=== PATIENT | female | born 1970 | race Caucasian/White ===

== ENCOUNTER 2016-11-11 23:00 | Emergency (ER) | payer BC ==
[~2016-11-11] VITALS: Ht 167.6 cm; Wt 98.0 kg
[2016-11-11 23:09] VITALS: TEMP 36.8; Ht 167.6 cm; Wt 98.0 kg
[2016-11-11] MEDS ORDERED: CLR10 PO (23:33)
[2016-11-11] MEDS ORDERED: PSEU30TA20 PO (23:33)
--- NOTE | 2016-11-11 23:46 | EMERGENCY ROOM VISIT NOTE ---
History Report prepared by Elais: Tori Hutton Under the Supervision of: Oliver MetcalfO. First contact with patient: 23:36 Chief Complaint: FLANK PAIN Stated Complaint: INTENSE PAIN LOWER RT BACK AND RIGHT SIDE History of Present Illness The patient is a 46 year old female who presents to the Emergency Room with complaints of intermittent right sided flank pain that started at 0700 this morning. She rates her current discomfort as a 2/10 in severity and describes it as feeling "crampy" in nature. The pain does radiate up into her back. The patient reports she experienced some diarrhea this morning but states it has resolved. She also complains of dysuria and nausea. She has not vomited. The patient does admit to a family history of kidney stones in her Mother. She denies any recent fevers, chills or cough or cold symptoms. Source of History: patient Onset: 0700 this morning Position: abdomen Symptom Intensity: 2/10 Quality: cramping Timing: intermittent Associated Symptoms: + nausea, + diarrhea, + urinary symptoms, No fevers, No chills, No cough (cough or cold symptoms), No vomiting Review of Systems See HPI for pertinent positives & negatives. A total of 10 systems reviewed and were otherwise negative. Family History Kidney stones Social History Smoking Status: Never Smoker Alcohol Use: occasionally Drug Use: none Marital Status: Housing Status: lives with family Occupation Status: employed Current/Historical Medications Scheduled Ondasetron Odt (Zofran Odt), 4 MG SL Q6H Tamsulosin Hcl (Flomax), 0.4 MG PO DAILY Scheduled PRN Loratadine (Claritin), 10 MG PO DAILY PRN for ALLERGIES Oxycodone/Acetaminophen 5MG/325MG (Percocet 5MG/325MG), 1 TAB PO Q6 PRN for Pain Pseudoephedrine (Sudafed), 30 MG PO QAM PRN for ALLERGIES Allergies Coded Allergies: No Known Allergies (Unverified , 11/11/16) Physical Exam Vital Signs Date Time Temp Pulse Resp B/P (MAP) Pulse Ox O2 Delivery O2 Flow Rate FiO2 11/12/16 01:30 78 18 137/90 98 11/12/16 00:37 68 18 142/92 97 Room Air 11/11/16 23:09 36.8 82 20 124/84 97 Room Air Physical Exam GENERAL: Patient is alert, well appearing, well nourished, no distress, non- toxic EYE EXAM: normal conjunctiva, PERRL and EOM's grossly intact OROPHARYNX: no exudate, no erythema, lips, buccal mucosa, and tongue normal and mucous membranes are moist NECK: supple, no nuchal rigidity, no adenopathy, non-tender LUNGS: Clear to auscultation. Normal chest wall mechanics HEART: no murmurs, S1 normal and S2 normal ABDOMEN: abdomen soft, non-tender, normo-active bowel sounds, no masses, no rebound or guarding. BACK: Back is symmetrical on inspection and there is no deformity, no midline tenderness, no CVA tenderness. SKIN: no rashes and no bruising UPPER EXTREMITIES: upper extremities are grossly normal. LOWER EXTREMITIES: No pitting edema. NEURO EXAM: Normal sensorium, cranial nerves II-XII grossly intact, normal speech, no gross weakness of arms, no gross weakness of legs. No drift. Finger to nose intact. Gross sensation intact. Medical Decision & Procedures ER Provider Diagnostic Interpretation: Radiology results have been interpreted by the radiologist and reviewed by me. CT ABDOMEN & PELVIS: There is a 5 mm obstructing stone in the distal right ureter located 2 cm proximal to the UVJ causing mild upstream hydroureteronephrosis and perinephric stranding. Additional nonobstructing nephrolithiasis of both kidneys. No evidence of bowel obstruction, appendicitis, or diverticulitis. Radiologist: Darleen Mckee M.D. Laboratory Results 11/12/16 00:01 Red Blood Count 4.41, Mean Corpuscular Volume 87.8, Mean Corpuscular Hemoglobin 29.9, Mean Corpuscular Hemoglobin Concent 34.1, Mean Platelet Volume 12.7, Neutrophils (%) (Auto) 73.8, Lymphocytes (%) (Auto) 15.1, Monocytes (%) (Auto) 9.2, Eosinophils (%) (Auto) 1.5, Basophils (%) (Auto) 0.2, Neutrophils # (Auto) 7.23, Lymphocytes # (Auto) 1.48, Monocytes # (Auto) 0.90, Eosinophils # (Auto) 0.15, Basophils # (Auto) 0.02 11/12/16 00:01 Test 11/11/16 23:44 11/12/16 00:01 Urine Color ORANGE Urine Appearance CLOUDY (CLEAR) Urine pH 6.0 (4.5-7.5) Urine Specific [place] 1.023 (1.000-1.030) Urine Protein TRACE (NEG) Urine Glucose (UA) NEG (NEG) Urine Ketones NEG (NEG) Urine Occult Blood 3+ (NEG) Urine Nitrite NEG (NEG) Urine Bilirubin NEG (NEG) Urine Urobilinogen NEG (NEG) Urine Leukocyte Esterase TRACE (NEG) Urine WBC (Auto) 5-10 /hpf (0-5) Urine RBC (Auto) >30 /hpf (0-4) Urine Hyaline Casts (Auto) 1-5 /lpf (0-5) Urine Epithelial Cells (Auto) >30 /lpf (0-5) Urine Bacteria (Auto) NEG (NEG) Urine Test NEG (NEG) White Blood Count 9.80 K/uL (4.8-10.8) Red Blood Count 4.41 M/uL (4.2-5.4) Hemoglobin 13.2 g/dL (12.0-16.0) Hematocrit 38.7 % (37-47) Mean Corpuscular Volume 87.8 fL (80-100) Mean Corpuscular Hemoglobin 29.9 pg (25-34) Mean Corpuscular Hemoglobin Concent 34.1 g/dl (32-36) Platelet Count 195 K/uL (130-400) Mean Platelet Volume 12.7 fL (7.4-10.4) Neutrophils (%) (Auto) 73.8 % Lymphocytes (%) (Auto) 15.1 % Monocytes (%) (Auto) 9.2 % Eosinophils (%) (Auto) 1.5 % Basophils (%) (Auto) 0.2 % Neutrophils # (Auto) 7.23 K/uL (1.4-6.5) Lymphocytes # (Auto) 1.48 K/uL (1.2-3.4) Monocytes # (Auto) 0.90 K/uL (0.11-0.59) Eosinophils # (Auto) 0.15 K/uL (0-0.5) Basophils # (Auto) 0.02 K/uL (0-0.2) RDW Standard Deviation 45.3 fL (36.4-46.3) RDW Coefficient of Variation 14.0 % (11.5-14.5) Immature Granulocyte % (Auto) 0.2 % Immature Granulocyte # (Auto) 0.02 K/uL (0.00-0.02) Anion Gap 6.0 mmol/L (3-11) Est Creatinine Clear Calc Drug Dose 104.1 ml/min Estimated GFR () 104.2 Estimated GFR (Non- 89.9 BUN/Creatinine Ratio 18.1 (10-20) Calcium Level 8.8 mg/dl (8.5-10.1) Laboratory results per my review. Medications Administered Medications (Trade) Dose Ordered Sig/Danilo Route Start Time Stop Time Status Last Admin Dose Admin Sodium Chloride 1,000 ml @ 999 mls/hr Q1H1M STAT IV 11/11/16 23:47 11/12/16 00:47 DC 11/12/16 00:34 999 MLS/HR Ketorolac Tromethamine (Toradol Inj) 30 mg NOW STAT IV 11/11/16 23:52 11/11/16 23:53 DC 11/12/16 00:34 30 MG Tamsulosin HCl (Flomax Cap) 0.4 mg NOW ONCE PO 11/12/16 01:00 11/12/16 01:01 DC 11/12/16 01:26 0.4 MG Oxycodone/ Acetaminophen (Percocet 5-325mg Tab) 1 tab NOW ONCE PO 11/12/16 01:15 11/12/16 01:16 DC 11/12/16 01:26 1 TAB ED Course 2341: The patient was evaluated in room C4. A complete history and physical exam was performed. 2347: NSS 1000 ml @ 999 mls/hr IV. 2352: Toradol 30 mg IV. 0050: I reevaluated the patient. She is feeling well but still experiencing some supra-pubic pressure. I discussed her test results and discharge instructions and she verbalized complete understanding and agreement. 0100: Flomax Cap 0.4 mg PO. 0115: Percocet 5/325 mg 1 tab PO. Medical Decision Prior records/ancillary studies reviewed. Triage Nursing notes reviewed. Differential diagnosis: Etiologies such as renal colic, appendicitis, diverticulitis, mesenteric ischemia, aortic pathology, infections, inflammatory bowel disease, PUD, biliary pathology, UTI, as well as others were entertained. Pt well appearing here, discussed all results. UA mostly hematuria, slight pyuria likely dilutional from large RBC's. Sent for culture as a precaution. Labs otw reassuring. Doubt infected stone. Discussed sx to watch/return for, f /u with PCP/urology, she verbalized understanding and was agreeable with plan. Medication Reconcilliation Current Medication List: was personally reviewed by me Blood Pressure Screening Patient's blood pressure: Elevated blood pressure Blood pressure disposition: Elevated BP felt to be situational Impression Primary Impression: Right flank pain Additional Impression: Ureterolithiasis Scribe Attestation The scribe's documentation has been prepared under my direction and personally reviewed by me in its entirety. I confirm that the note above accurately reflects all work, treatment, procedures, and medical decision making performed by me. Departure Information Dispostion Home / Self-Care Prescriptions Oxycodone/Acetaminophen 5MG/325MG (PERCOCET 5MG/325MG) Tab 1 TAB PO Q6 Y for Pain, #20 TAB Prov: Brenna Lester, DO 11/12/16 Ondasetron Odt (ZOFRAN ODT) 4 Mg Tab 4 MG SL Q6H for Nausea, #20 TAB Prov: Brenna Lester, DO 11/12/16 Tamsulosin Hcl (FLOMAX) 0.4 Mg Cap 0.4 MG PO DAILY, #10 CAP Prov: Brenna Lester, DO 11/12/16 Referrals Lila Brink (PCP) Patient Instructions My [facility] Additional Instructions Please follow up with your family doctor and/or urology. Please drink plenty of water. Please take the Flomax daily until you passed the kidney stone. You may use the pain and nausea medication as needed. Do not take the pain medication and drive and please monitor for constipation. If you develop any worsening pain, fevers/chills, vomiting, are unable to urinate, or you have any other new or concerning symptoms, please return to the emergency room. Your urine was sent for culture as a precaution. If it grows out infection, you'll receive a phone call. Problem Qualifiers
[2016-11-11] MEDS ORDERED: SODIUM CHLORIDE 0.9% 1000ML 1,000 ML IV STA (23:47)
[2016-11-11] MEDS ORDERED: KETOROLAC TROMETHAMINE 30 MG/ML VIAL IV STA (23:52)
[2016-11-12 00:08] LABS: URINE APPEARANCE CLOUDY (CLEAR); URINE BILIRUBIN NEG (NEG); URINE COLOR ORANGE; URINE EPITHELIAL CELL AUTO >30 /lpf (0-5); URINE NITRITE NEG (NEG); URINE SPECIFIC GRAVITY 1.023 (1.000-1.030); UROBILINOGEN NEG (NEG); ZZUR CULT IF INDIC CLEAN CATCH NO
[2016-11-12 00:09] LABS: MANUAL MICROSCOPIC REQUIRED? NO; REVIEW REQ? NO
[2016-11-12 00:17] LABS: BASO % 0.2 %; BASO ABS # 0.02 K/uL (0-0.2); COMPLETE YES; EOS % 1.5 %; HEMATOCRIT 38.7 % (37-47); IG% 0.2 %; LYMPH % 15.1 %; LYMPH ABS # 1.48 K/uL (1.2-3.4); MEAN CELL VOLUME 87.8 fL (80-100); MEAN CORPUSCULAR HEMOGLOBIN 29.9 pg (25-34); MEAN CORPUSCULAR HGB CONC 34.1 g/dl (32-36); MEAN PLATELET VOLUME 12.7 fL (7.4-10.4); MONO % 9.2 %; NEUT % 73.8 %; PLATELET COUNT 195 K/uL (130-400); RED BLOOD COUNT 4.41 M/uL (4.2-5.4)
[2016-11-12 00:35] LABS: BUN/CREATININE RATIO 18.1 (10-20); CALCIUM 8.8 mg/dl (8.5-10.1); CREATININE 0.78 mg/dl (0.60-1.20)
[2016-11-12] MEDS ORDERED: TAMSULOSIN HCL 0.4 MG CAP PO ONE (01:00)
[2016-11-12] MEDS ORDERED: OXYC-57 PO (01:04)
[2016-11-12] MEDS ORDERED: ONDA4TAB10 SL (01:04)
[2016-11-12] MEDS ORDERED: TAMS0.4C38 PO (01:04)
[2016-11-12] MEDS ORDERED: OXYCODONE/ACETAMINOPHEN 5-325 TAB PO ONE (01:15)
[2016-11-12 01:30] VITALS: BP 137/90; PULSE 78; O2SAT 98
--- NOTE | 2016-11-12 07:27 | DIAGNOSTIC IMAGING REPORT ---
ABD/PELVIS NO IV OR ORAL CONT CLINICAL HISTORY: 46 years-old Female presenting with right flank pain. TECHNIQUE: Multidetector CT of the abdomen and pelvis was performed without the use of intravenous contrast. IV contrast: None. A dose lowering technique was used consistent with the principles of ALARA (as low as reasonably achievable). COMPARISON: None. CT DOSE (mGy.cm): The estimated cumulative dose is 831.78 mGy.cm. FINDINGS: Litigation Counsel topogram: Unremarkable. Lung bases: Minimal dependent changes, likely atelectasis. Normal heart size. No pericardial or pleural effusion. Liver: Normal morphology. Normal density. Biliary: No gross biliary ductal dilatation allowing for noncontrast technique. Gallbladder contracted. Pancreas: Normal. Spleen: Normal. Adrenal glands: Normal. Kidneys and ureters: Nonobstructing 5 mm calculus at the right lower pole. Mild periureteral fat stranding along the proximal ureter, which is mildly dilated. Continued dilatation of the right ureter to the level of the right hemipelvis, where there is an obstructing 6 mm calculus proximal to the right ureterovesical junction (series 3 image 420). Mild right hydronephrosis results. Nonobstructing 4 mm calculus at the upper pole left kidney. No left hydronephrosis. Left ureter normal. Gastrointestinal tract: Normal. No bowel obstruction. Peritoneal cavity: Trace free fluid in the pelvis, likely physiologic. Bladder: Incompletely evaluated secondary to underdistention. No bladder calculi. Pelvic organs: Uterus and ovaries normal. Vasculature: Normal noncontrast appearance. Lymph nodes: Multiple enlarged subcentimeter lymph nodes in the small bowel mesentery in the upper abdomen without significant surrounding fat stranding. No pathologically enlarged lymph nodes in the abdomen or pelvis. Abdominal wall: Diastases of the abdominis rectus. Musculoskeletal: Normal. IMPRESSION: 1. Obstructing 6 mm calculus in the distal right ureter with resultant mild right hydroureteronephrosis. Additional bilateral nonobstructing renal calculi. Electronically signed by: Dima Aguiar M.D. 11/12/2016 7:26 AM Dictated Date/Time: 11/12/2016 7:20 AM
[2016-11-24] MEDS ORDERED: PHEN-775 PO (08:23)
== END 2016-11-12 01:31 | disposition home or self-care (01) ==
LOC: C.EDB 23:02 → C.EDC 11-12 01:31
DX: R10.11 Right upper quadrant pain (principal); R10.31 Right lower quadrant pain; N20.1 Calculus of ureter

== ENCOUNTER 2016-11-16 14:26 | Emergency (ER) | payer BC ==
[~2016-11-16] VITALS: Ht 167.6 cm; Wt 97.5 kg
[~2016-11-16 14:26] MED LIST: CLR10 PO; ONDA4TAB10 SL; OXYC-57 PO; PSEU30TA20 PO; TAMS0.4C38 PO
[2016-11-16 14:30] VITALS: TEMP 36.9; Ht 167.6 cm; Wt 97.5 kg
[2016-11-16] MEDS ORDERED: SODIUM CHLORIDE 0.9% 1000ML 1,000 ML IV STA (14:55)
[2016-11-16] MEDS ORDERED: KETOROLAC TROMETHAMINE 30 MG/ML VIAL IV STA (14:55)
[2016-11-16] MEDS ORDERED: ONDANSETRON INJ 2 MG/ML 2 ML VIAL IV STA (14:55)
--- NOTE | 2016-11-16 15:17 | EMERGENCY ROOM VISIT NOTE ---
History First contact with patient: 14:42 Chief Complaint: NAUSEA Stated Complaint: KIDNEY STONES, INCREASED NAUSEA, HEADACHE Nursing Triage Summary: Pt c/o increased nausea and headache. Symptoms began this morning. Seen here Wednesday for a kidney stone. Vomited at 1000 History of Present Illness The patient is a 46 year old female who presents to the Emergency Room with complaints of nausea with vomiting, right flank pain. She describes her right flank pain as constant ache, with intermittently worsening sharp pains, currently rates as 3/10. She states the primary reason she is in the ER is for worsening nausea with vomiting. Patient was seen in this emergency department 5 days ago and diagnosed with a 5 mm right-sided ureteral stone sent home on Percocet, Zofran, Flomax, which she states she has been taking. She states she has been straining her urine and has not yet passed the stone. This morning her flank pain became worse and she was more nauseated to the point of vomiting 3. She also is complaining of a generalized headache today. She denies fevers , chest pain, shortness of breath, palpitations, dizziness or passing out, diarrhea or constipation. She denies hematuria, decreased output, or dark urine , but she does note that she has had increased urinary frequency and burning with urination since yesterday. Review of Systems A complete 10 point review of systems was reviewed with the patient with pertinent positives and negatives as per history of present illness. All else were negative. Family History Kidney stones Social History Smoking Status: Never Smoker Alcohol Use: occasionally Drug Use: none Marital Status: Housing Status: lives with family Occupation Status: employed Current/Historical Medications Scheduled Ondasetron Odt (Zofran Odt), 4 MG SL Q6H Sulfa/Trimethoprim (Bactrim Ds 800MG/160MG), 1 TAB PO BID Tamsulosin Hcl (Flomax), 0.4 MG PO DAILY Scheduled PRN Loratadine (Claritin), 10 MG PO DAILY PRN for ALLERGIES Oxycodone/Acetaminophen 5MG/325MG (Percocet 5MG/325MG), 1 TAB PO Q6 PRN for Pain Pseudoephedrine (Sudafed), 30 MG PO QAM PRN for ALLERGIES Physical Exam Vital Signs Date Time Temp Pulse Resp B/P (MAP) Pulse Ox O2 Delivery O2 Flow Rate FiO2 11/16/16 19:06 64 128/81 97 11/16/16 17:30 73 16 126/83 95 Room Air 11/16/16 16:15 69 17 143/73 98 Room Air 11/16/16 14:30 36.9 85 17 146/87 100 Room Air Physical Exam CONSTITUTIONAL: No acute distress, but does appear uncomfortable. Mildly dehydrated. Alert and oriented X 4 with normal affect. HEENT: Normocephalic, atraumatic. Pupils equal, round and reactive to light, EOMI. TMs normal. Pharynx normal. Dry mucous membranes. NECK: Supple, full active range of motion without discomfort. RESPIRATORY: Clear to auscultation bilaterally with no wheezing, crackles, rhonchi or stridor. Equal expansion bilaterally. CARDIOVASCULAR: Regular rate and rhythm with no murmurs, rubs or gallops. Normal peripheral perfusion. No edema. GASTROINTESTINAL: Moderate right flank and right lower quadrant tenderness to palpation, no rebound or guarding. Mild right CVA tenderness. Soft, nondistended. Bowel sounds present in all quadrants. MUSCULOSKELETAL: Full range of motion of all joints without discomfort. INTEGUMENTARY: No rash or other significant dermatologic conditions noted. NEUROLOGIC: Cranial nerves II-XII grossly intact. No focal neurologic deficits noted. Normal strength, normal sensation, normal coordination, normal speech, normal gait. Medical Decision & Procedures ER Provider Diagnostic Interpretation: KUB HISTORY: Generalized abdominal pain. COMPARISON: Abdomen and pelvis CT 11/12/2016. FINDINGS: The bowel gas pattern is unremarkable. There are no dilated loops of small bowel to suggest an obstruction. Moderate well-formed stool within the colon. There are few punctate bilateral renal calculi, unchanged. No left ureteral calculi. No change in the 5 mm obstructing stone within the distal right ureter. No pneumoperitoneum or pneumatosis. IMPRESSION: 1. No change in the 5 mm distal right ureteral stone. 2. Stable bilateral nephrolithiasis. ----- (RENAL)RETROPERITONEA COMP HISTORY: Hydronephrosis known right ureteral stone, eval hydronephrosis COMPARISON: Outside CT 11/12/2016 FINDINGS: Right kidney: Mild right renal hydronephrosis. Similar compared to the prior CT study. Maximum dimension 11.8 cm. Normal corticomedullary differentiation and cortical thickness. Left kidney: No evidence for hydronephrosis. Maximum dimension 11.4 cm. Normal corticomedullary differentiation and cortical thickness. Bladder: No bladder wall thickening. No right ureteral jet. Possible calculus distal right ureter/right ureterovesical junction IMPRESSION: Mild/moderate right renal hydronephrosis unchanged. Possible calcification right ureteral vesicle junction. Laboratory Results 11/16/16 15:45 Red Blood Count 4.55, Mean Corpuscular Volume 88.4, Mean Corpuscular Hemoglobin 29.9, Mean Corpuscular Hemoglobin Concent 33.8, Mean Platelet Volume 12.2, Neutrophils (%) (Auto) 80.3, Lymphocytes (%) (Auto) 10.4, Monocytes (%) (Auto) 8.0, Eosinophils (%) (Auto) 0.7, Basophils (%) (Auto) 0.3, Neutrophils # (Auto) 5.81, Lymphocytes # (Auto) 0.75, Monocytes # (Auto) 0.58, Eosinophils # (Auto) 0.05, Basophils # (Auto) 0.02 11/16/16 15:45 Test 11/16/16 15:30 11/16/16 15:45 11/16/16 18:22 Urine Color YELLOW Urine Appearance TURBID (CLEAR) Urine pH >= 9.0 (4.5-7.5) Urine Specific [place] 1.021 (1.000-1.030) Urine Protein TRACE (NEG) Urine Glucose (UA) NEG (NEG) Urine Ketones 1+ (NEG) Urine Occult Blood 3+ (NEG) Urine Nitrite NEG (NEG) Urine Bilirubin NEG (NEG) Urine Urobilinogen NEG (NEG) Urine Leukocyte Esterase SMALL (NEG) Urine WBC (Auto) 10-30 /hpf (0-5) Urine RBC (Auto) >30 /hpf (0-4) Urine Hyaline Casts (Auto) 1-5 /lpf (0-5) Urine Epithelial Cells (Auto) >30 /lpf (0-5) Urine Bacteria (Auto) 2+ (NEG) White Blood Count 7.23 K/uL (4.8-10.8) Red Blood Count 4.55 M/uL (4.2-5.4) Hemoglobin 13.6 g/dL (12.0-16.0) Hematocrit 40.2 % (37-47) Mean Corpuscular Volume 88.4 fL (80-100) Mean Corpuscular Hemoglobin 29.9 pg (25-34) Mean Corpuscular Hemoglobin Concent 33.8 g/dl (32-36) Platelet Count 183 K/uL (130-400) Mean Platelet Volume 12.2 fL (7.4-10.4) Neutrophils (%) (Auto) 80.3 % Lymphocytes (%) (Auto) 10.4 % Monocytes (%) (Auto) 8.0 % Eosinophils (%) (Auto) 0.7 % Basophils (%) (Auto) 0.3 % Neutrophils # (Auto) 5.81 K/uL (1.4-6.5) Lymphocytes # (Auto) 0.75 K/uL (1.2-3.4) Monocytes # (Auto) 0.58 K/uL (0.11-0.59) Eosinophils # (Auto) 0.05 K/uL (0-0.5) Basophils # (Auto) 0.02 K/uL (0-0.2) RDW Standard Deviation 44.8 fL (36.4-46.3) RDW Coefficient of Variation 13.8 % (11.5-14.5) Immature Granulocyte % (Auto) 0.3 % Immature Granulocyte # (Auto) 0.02 K/uL (0.00-0.02) Anion Gap 7.0 mmol/L (3-11) Est Creatinine Clear Calc Drug Dose 92.0 ml/min Estimated GFR () 90.0 Estimated GFR (Non- 77.7 BUN/Creatinine Ratio 15.2 (10-20) Calcium Level 8.8 mg/dl (8.5-10.1) Chemistry Specimen Hemolysis Medications Administered Medications (Trade) Dose Ordered Sig/Danilo Route Start Time Stop Time Status Last Admin Dose Admin Sodium Chloride 1,000 ml @ 999 mls/hr Q1H1M STAT IV 11/16/16 14:55 11/16/16 15:55 DC 11/16/16 16:09 999 MLS/HR Ondansetron HCl (Zofran Inj) 4 mg NOW STAT IV 11/16/16 14:55 11/16/16 14:57 DC 11/16/16 16:09 4 MG Ketorolac Tromethamine (Toradol Inj) 15 mg NOW STAT IV 11/16/16 14:55 11/16/16 14:57 DC 11/16/16 16:09 15 MG Ceftriaxone Sodium (Rocephin Inj) 1 gm NOW STAT IV 11/16/16 16:38 11/16/16 16:40 DC 11/16/16 17:26 1 GM Trimethoprim/ Sulfamethoxazole (Septra Ds 800/ 160MG Tab) 1 tab NOW STAT PO 11/16/16 16:38 11/16/16 16:40 DC 11/16/16 17:26 1 TAB Medical Decision CC: Patient presenting with complaint of right flank pain with nausea and vomiting, headache Interpretation of Labs: No leukocytosis, no anemia, no significant elective at abnormalities, normal renal function, normal liver enzymes and lipase. UA concerning for developing UTI in setting of dysuria and frequency, culture pending. Differential Diagnosis: Includes, but not limited to obstructing ureteral stone , hydronephrosis, UTI, pyelonephritis, dehydration, electrolyte abnormality, tension headache, among others. Medication Reconciliation: I attest that I have personally reviewed the patient' s current medication list. Vital signs review: I reviewed the patient's vital signs and interpret them as follows: T: Afebrile; BP: Hypertensive; HR: Within normal limits; RR: Within normal limits; Pulse Ox: Within normal limits on room air. Blood pressure screening: The patient was found to have an elevated blood pressure and was referred to their primary doctor for recheck and further treatment. Summary: Patient was evaluated at bedside, history of physical exam performed. Patient is alert and in no acute distress but appears somewhat uncomfortable. She has mild right flank tenderness and right abdominal tenderness on exam. She is actively nauseated, but no active vomiting noted. Orders were placed at bedside for labs, UA, IV fluids, KUB and renal ultrasound to evaluate for hydronephrosis and progression of stone. Patient discussed with Dr. Quintanilla, who agrees with my assessment and plan. Labs reviewed as above, unremarkable. UA concerning for developing UTI, in the setting of an obstructing stone, we will treat. One dose of IV Rocephin ordered and dose of Bactrim given. Imaging reviewed, consistent with an unchanged position of the ureteral stone, no worsening hydronephrosis noted of the right kidney. Patient was updated on all results and all questions were answered. Patient reassessed multiple times throughout ED stay, she reports her nausea is improved after IV Zofran and she has been tolerating PO fluids. She also reports feeling much better after IV fluids and Toradol. Her headache is fully resolved. Upon further discussion with the patient, it seems that her nausea may be related to taking the Percocet, which she has been prescribed for pain. She was encouraged to start taking ibuprofen for her pain and to only take the Percocet as needed for severe pain, and also premedicated with Zofran prior to taking Percocet to help reduce her nausea/vomiting. Given that she has yet to pass this stone in nearly a week and now has had interval development of a possible UTI, patient was strongly urged to follow closely with the urologist and to call tomorrow for an appointment. Patient was also given strict return precautions should her symptoms worsen, she verbalized understanding. Patient was discharged home in stable condition and ambulatory. Impression Primary Impression: Right distal ureteral calculus Additional Impressions: Nausea & vomiting UTI (urinary tract infection) Departure Information Dispostion Home / Self-Care Condition GOOD Prescriptions Sulfa/Trimethoprim (Bactrim Ds 800MG/160MG) Tab 1 TAB PO BID for 10 Days, #20 TAB Prov: Debora Melvin CRNP 11/16/16 Referrals No Doctor, Assigned (PCP) Renato Vernon D.O. Patient Instructions ED Stone Renal W Colic, ED UTI Cystitis Female, My [facility] Additional Instructions You have been treated in the Emergency Department today for a Kidney Stone ( Nephrolithiasis). You also appear to have a urinary tract infection (UTI) and have been treated for that as well. You have been prescribed Bactrim to take twice a day for 10 days to treat your urinary tract infection. This is an antibiotic, take as prescribed and do not skip any doses. Continue to take the Percocet, Zofran, and Flomax as prescribed for your symptoms. For additional pain control, you may take regular strength (200 mg/tab) Advil ( ibuprofen) 3 tabs every 6 hours as needed. Do not exceed a dose of 3200 mg per day. You should continue to strain your urine to collect any passed stones. Your stones can be placed into the specimen cup and taken to your Urologist for further evaluation. You have been provided the contact information for the on-call Urologist (Dr. Vernon). You should contact the Urologist's office tomorrow morning to establish a follow-up appointment so that your stone can be definitively managed. Please return to the Emergency Department if your symptoms worsen despite the treatment plan outlined above or if you develop the following symptoms: intractable pain, fevers, chills, large amounts of blood in your urine, or inability to urinate for more than 8 hours. Problem Qualifiers Additional Impressions: Nausea & vomiting Vomiting type: unspecified Vomiting Intractability: non-intractable Qualified Codes: R11.2 - Nausea with vomiting, unspecified UTI (urinary tract infection) Urinary tract infection type: site unspecified Hematuria presence: with hematuria Qualified Codes: N39.0 - Urinary tract infection, site not specified ; R31.9 - Hematuria, unspecified
[2016-11-16 15:58] LABS: URINE APPEARANCE TURBID (CLEAR); URINE BILIRUBIN NEG (NEG); URINE COLOR YELLOW; URINE EPITHELIAL CELL AUTO >30 /lpf (0-5); URINE NITRITE NEG (NEG); URINE PH >= 9.0 (4.5-7.5); URINE SPECIFIC GRAVITY 1.021 (1.000-1.030); UROBILINOGEN NEG (NEG)
[2016-11-16 16:01] LABS: MANUAL MICROSCOPIC REQUIRED? NO; REVIEW REQ? NO
[2016-11-16 16:02] LABS: SULFASALICYLIC ACID POS (NEG)
[2016-11-16 16:07] LABS: BASO % 0.3 %; BASO ABS # 0.02 K/uL (0-0.2); COMPLETE YES; EOS % 0.7 %; HEMATOCRIT 40.2 % (37-47); IG% 0.3 %; LYMPH % 10.4 %; LYMPH ABS # 0.75 K/uL (1.2-3.4); MEAN CELL VOLUME 88.4 fL (80-100); MEAN CORPUSCULAR HEMOGLOBIN 29.9 pg (25-34); MEAN CORPUSCULAR HGB CONC 33.8 g/dl (32-36); MEAN PLATELET VOLUME 12.2 fL (7.4-10.4); NEUT % 80.3 %; PLATELET COUNT 183 K/uL (130-400); RED BLOOD COUNT 4.55 M/uL (4.2-5.4); WHITE BLOOD COUNT 7.23 K/uL (4.8-10.8)
[2016-11-16 16:27] LABS: BUN/CREATININE RATIO 15.2 (10-20); CALCIUM 8.8 mg/dl (8.5-10.1); CREATININE 0.88 mg/dl (0.60-1.20); POTASSIUM 4.4 mmol/L (3.5-5.1)
[2016-11-16] MEDS ORDERED: CEFTRIAXONE SOD INJ 1 GM ADDVIAL IV STA (16:38)
[2016-11-16] MEDS ORDERED: SULFAMETHOXAZOLE/TRIMETHOPRIM DS 800/160MG TAB PO STA (16:38)
--- NOTE | 2016-11-16 16:52 | DIAGNOSTIC IMAGING REPORT ---
(RENAL)RETROPERITONEA COMP HISTORY: Hydronephrosis known right ureteral stone, eval hydronephrosis COMPARISON: Outside CT 11/12/2016 FINDINGS: Right kidney: Mild right renal hydronephrosis. Similar compared to the prior CT study. Maximum dimension 11.8 cm. Normal corticomedullary differentiation and cortical thickness. Left kidney: No evidence for hydronephrosis. Maximum dimension 11.4 cm. Normal corticomedullary differentiation and cortical thickness. Bladder: No bladder wall thickening. No right ureteral jet. Possible calculus distal right ureter/right ureterovesical junction IMPRESSION: Mild/moderate right renal hydronephrosis unchanged. Possible calcification right ureteral vesicle junction The above report was generated using voice recognition software. It may contain grammatical, syntax or spelling errors. Electronically signed by: Ranjan Dean M.D. 11/16/2016 4:51 PM Dictated Date/Time: 11/16/2016 4:49 PM
--- NOTE | 2016-11-16 17:00 | DIAGNOSTIC IMAGING REPORT ---
KUB HISTORY: Generalized abdominal pain. COMPARISON: Abdomen and pelvis CT 11/12/2016. FINDINGS: The bowel gas pattern is unremarkable. There are no dilated loops of small bowel to suggest an obstruction. Moderate well-formed stool within the colon. There are few punctate bilateral renal calculi, unchanged. No left ureteral calculi. No change in the 5 mm obstructing stone within the distal right ureter. No pneumoperitoneum or pneumatosis. IMPRESSION: 1. No change in the 5 mm distal right ureteral stone. 2. Stable bilateral nephrolithiasis. Electronically signed by: Onofre Manrique M.D. 11/16/2016 4:59 PM Dictated Date/Time: 11/16/2016 4:57 PM
[2016-11-16] MEDS ORDERED: SULF800T23 PO (18:27)
[2016-11-16 19:06] VITALS: BP 128/81; PULSE 64; O2SAT 97
[2016-11-24] MEDS ORDERED: PHEN-775 PO (08:23)
== END 2016-11-16 19:07 | disposition home or self-care (01) ==
LOC: C.EDB 14:28
DX: N13.2 Hydronephrosis with renal and ureteral calculous obstruction (principal); N39.0 Urinary tract infection, site not specified; R51 Headache; Z84.1 Family history of disorders of kidney and ureter; Z79.899 Other long term (current) drug therapy

== ENCOUNTER → 2016-11-18 | Outpatient (CLI) | payer BC ==
[~2016-11-18] MED LIST changes: +ONDA4TAB46 PO; +PHEN-775 PO; +SCOPOLAMINE 1.5 MG TDSY TD ONE; +SULF800T23 PO
--- NOTE | 2016-11-18 13:01 | DIAGNOSTIC IMAGING REPORT ---
CHEST 2 VIEWS ROUTINE HISTORY: 46 years-old Female N20.0 [id number] COMPARISON: Chest CT 06/02/2010 TECHNIQUE: Frontal and lateral radiographic views of the chest FINDINGS: Cardiomediastinal and hilar silhouettes are within normal limits. No pneumothorax, pleural effusion or focal airspace consolidation. Bones of the chest appear grossly intact. There is mild convex left curvature of the lower thoracic spine. IMPRESSION: No acute cardiopulmonary process. The above report was generated using voice recognition software. It may contain grammatical, syntax or spelling errors. Electronically signed by: Keaton Esquivel M.D. 11/18/2016 12:59 PM Dictated Date/Time: 11/18/2016 12:58 PM
--- NOTE | 2016-11-18 13:03 | DIAGNOSTIC IMAGING REPORT ---
KUB HISTORY: 46 years-old Female N20.0 [id number] COMPARISON: KUB 11/16/2016, CT 11/12/2016 TECHNIQUE: Single KUB radiograph FINDINGS: There is no change in positioning of the 5 mm calculus of the distal right ureter. Bilateral nephrolithiasis redemonstrated. No additional ureteral calculi are seen. Bones are intact. Nonobstructive bowel gas pattern. IMPRESSION: 1. No change in position of the 5 mm distal right ureteral calculus. 2. Bilateral nephrolithiasis redemonstrated. The above report was generated using voice recognition software. It may contain grammatical, syntax or spelling errors. Electronically signed by: Keaton Esquivel M.D. 11/18/2016 1:01 PM Dictated Date/Time: 11/18/2016 1:00 PM
== END | disposition home or self-care (01) ==
LOC: C.RAD 12:06
PROVIDERS: ATTEND Urology
DX: N20.0 Calculus of kidney (principal)

== ENCOUNTER 2016-11-19 03:55 | Emergency (ER) | payer BC ==
[~2016-11-19] VITALS: Ht 167.6 cm; Wt 97.7 kg
[~2016-11-19 03:55] MED LIST changes: -ONDA4TAB46 PO; -PHEN-775 PO; -SCOPOLAMINE 1.5 MG TDSY TD ONE
[2016-11-19 03:58] VITALS: TEMP 36.6; Ht 167.6 cm; Wt 97.7 kg
[2016-11-19] MEDS ORDERED: SOAP SUDS ENEMA PR STA (04:27)
--- NOTE | 2016-11-19 05:25 | EMERGENCY ROOM VISIT NOTE ---
History First contact with patient: 04:04 Chief Complaint: GI ASSESSMENT Stated Complaint: IMPACTED BOWELS FROM KIDNEY STONES TREATMENT History of Present Illness The patient is a 46 year old female who presents to the Emergency Room with complaints of no bowel movement for the past 3 days she's been taking narcotics for kidney stones. No prior abdominal surgeries. No history of bowel obstructions in the past. Patient has not been taking a stool softeners with her narcotics. Patient denies chest pain, dyspnea, fever, chills, vomiting, diarrhea, dysuria, fevers. Patient is currently on her menstrual cycle. Review of Systems See HPI for pertinent positives & negatives. A total of 10 systems reviewed and were otherwise negative. Past Medical/Surgical History Kidney stones Family History Kidney stones Social History Smoking Status: Never Smoker Alcohol Use: occasionally Drug Use: none Marital Status: Housing Status: lives with family Occupation Status: employed Current/Historical Medications Scheduled PRN Loratadine (Claritin), 10 MG PO DAILY PRN for ALLERGIES Pseudoephedrine (Sudafed), 30 MG PO QAM PRN for ALLERGIES Physical Exam Vital Signs Date Time Temp Pulse Resp B/P (MAP) Pulse Ox O2 Delivery O2 Flow Rate FiO2 11/19/16 03:58 36.6 88 20 136/84 97 Room Air Physical Exam VITALS: Vitals are noted on the nurse's note and reviewed by myself. Vital signs stable. GENERAL: White female, in no acute distress, nondiaphoretic, well-developed well -nourished. SKIN: The skin was without rashes, erythema, edema, or bruising. There is no tenting of the skin. Capillary reflex less than 2 seconds. HEAD: Normocephalic atraumatic. EARS: External auditory canals clear, tympanic membranes pearly moreira without erythema or effusion bilaterally. EYES: Pupils equal round and reactive to light and accommodation. Conjunctivae without injection, sclerae without icterus. Extraocular movements intact. NOSE: Patent, turbinates without inflammation or discharge. MOUTH: Mucous membranes moist. Pharynx without erythema or exudate. Uvula midline. Airway patent. Tongue does not deviate. NECK: Supple without nuchal rigidity. No lymphadenopathy. No thyromegaly. Cervical spine is nontender. No JVD. HEART: Regular rate and rhythm without murmurs gallops or rubs. LUNGS: Clear to auscultation bilaterally without wheezes, rales or rhonchi. No dullness to percussion. No retractions or accessory muscle use. ABDOMEN: Positive bowel sounds x 4. Normal tympanic percussion. Soft, nontender, without masses or organomegaly. Manriquez sign negative. No guarding or rebound tenderness. MUSCULOSKELETAL: No muscle atrophy, erythema, or edema noted. NEURO: Patient was alert and oriented to person place and time. Normal sensation to light and sharp touch. No focal neurological deficits. Medical Decision & Procedures Medications Administered Medications (Trade) Dose Ordered Sig/Danilo Route Start Time Stop Time Status Last Admin Dose Admin Miscellaneous (Soap Suds Enema) 1 ea NOW STAT NE 11/19/16 04:27 11/19/16 04:29 DC 11/19/16 04:45 1 EA ED Course Prior records/ancillary studies reviewed. Triage Nursing notes reviewed. Additional history obtained from family The patient's history was concerning for abdominal fullness and constipation Differential diagnosis: Etiologies such as constipation, appendicitis, diverticulitis, PUD, biliary pathology, UTI, pancreatitis, obstruction, mesenteric ischemia, aortic pathology , infections, inflammatory bowel disease, renal colic, as well as others were entertained. Physical examination findings: As above. ER treatment provided: Soapsuds enema by nursing On reassessment the patient felt better. Diagnostics interpreted by me: Imaging studies: Acute abdominal series with no obstruction, + fecal loading, kidney stone noted at the right distal UVJ per my interpretation Exam and history seem consistent with constipation. Patient felt much better after being medicated as above. Patient was strongly encouraged to always take a stool softener if she takes narcotics. She is advised to take the medications as directed and to follow-up with family care and urology in a few days or here in the ER sooner for abdominal pain, fevers, worsening signs or symptoms or as needed. Patient did not have an acute abdomen on exam. She is well-appearing. By the evaluation outlined above emergent etiologies such as appendicitis, diverticulitis, PUD, biliary pathology, UTI, pancreatitis, obstruction, mesenteric ischemia, aortic pathology, infections, inflammatory bowel disease, renal colic, as well as others were deemed relatively unlikely. The pt informed about the findings as listed above. All questions were answered and pleased with the treatment. Return instructions were outlined and the patient was discharged in stable condition. Outpatient prescription management: Magnesium citrate Referral: The patient was referred back to their primary care physician and urology for follow-up in 2 to 3 days for a recheck of the current condition. Medical Decision As above Medication Reconcilliation Current Medication List: was personally reviewed by me Blood Pressure Screening Patient's blood pressure: Normal blood pressure Impression Primary Impression: Constipation Departure Information Dispostion Home / Self-Care Condition GOOD Referrals Lila Brink (PCP) Patient Instructions My [facility] Additional Instructions Magnesium citrate: Drink half the bottle when you get up, if you do not have a bowel movement within 6 hours then drink the rest. Recommend that you stay home and near a toilet tomorrow. Always take a stool softener with narcotics. Rest and drink plenty of fluids as tolerated. Continue current medications. Avoid strenuous activities and anything that worsens your pain. Resume normal activities once your symptoms resolve. Return to the ER immediately for worsening or persistent abdominal pain, vomiting, fevers, chest pains, difficulty breathing, worsening of your condition , or as needed. Follow up with your primary physician in 2-3 days for a recheck of your current condition. Problem Qualifiers Primary Impression: Constipation Constipation type: unspecified constipation type Qualified Codes: K59.00 - Constipation, unspecified
[2016-11-19] MEDS ORDERED: MAGNESIUM CITRATE 296 ML/BTL PO ONE (05:30)
[2016-11-19 05:45] VITALS: BP 128/72; PULSE 78; O2SAT 96
--- NOTE | 2016-11-19 07:38 | DIAGNOSTIC IMAGING REPORT ---
PA CHEST RADIOGRAPH AND UPRIGHT AND SUPINE AP RADIOGRAPHS OF THE ABDOMEN CLINICAL HISTORY: No recent bowel movement. Evaluate for small bowel obstruction. COMPARISON STUDY: Chest radiograph and KUB November 18, 2016. FINDINGS: Lung volumes are normal. Lungs are clear. No pneumothorax or pleural effusion is present. Cardiomediastinal silhouette is normal. There is no free air. The bowel gas pattern is normal. There is a moderate amount of stool within the colon and rectum. A 5 mm distal right ureteral calculus is unchanged in position. Bilateral renal calculi are unchanged. IMPRESSION: 1. No free air or evidence of bowel obstruction. 2. No change in position of the 5 mm distal right ureteral calculus. 3. Bilateral nephrolithiasis. Electronically signed by: Magdy Tena M.D. 11/19/2016 7:37 AM Dictated Date/Time: 11/19/2016 7:34 AM
[2016-11-24] MEDS ORDERED: PHEN-775 PO (08:23)
== END 2016-11-19 05:46 | disposition home or self-care (01) ==
LOC: C.EDB 03:56
DX: K59.00 Constipation, unspecified (principal); N20.0 Calculus of kidney

== ENCOUNTER 2016-11-24 05:28 | Day surgery (SDC) | payer BC ==
[~2016-11-24] VITALS: Ht 167.6 cm; Wt 95.5 kg
[~2016-11-24 05:28] MED LIST changes: -ONDA4TAB10 SL; -OXYC-57 PO; -SULF800T23 PO; -TAMS0.4C38 PO
[2016-11-24] MEDS ORDERED: SULF800T23 PO (05:51)
[2016-11-24] MEDS ORDERED: TAMS0.4C38 PO (05:51)
[2016-11-24] MEDS ORDERED: ONDA4TAB46 PO (05:51)
[2016-11-24 05:58] VITALS: BP 125/70; PULSE 91; TEMP 37; O2SAT 96; Ht 167.6 cm; Wt 95.5 kg
[2016-11-24] MEDS ORDERED: CEFAZOLIN 2000 MG/60 ML D5W IV SCH (06:00)
[2016-11-24] MEDS ORDERED: LACTATED RINGER'S 1000ML 1,000 ML IV SCH (06:00)
[2016-11-24] MEDS ORDERED: FENTANYL CITRATE INJ 50 MCG/1 ML 2 ML VIAL ONE (06:57)
[2016-11-24] MEDS ORDERED: MIDAZOLAM HCL 1 MG/ML 2ML VIAL ONE (06:57)
[2016-11-24] MEDS ORDERED: CONRAY 30% 150ML BOTTLE ONE (07:02)
--- NOTE | 2016-11-24 07:14 | History & Physical Bridge Note ---
H&P Re-Evaluation Bridge Note: I have examined the patient, reviewed the History & Physical and in the interval since the performance of the History & Physical I have noted the following changes of clinical significance: No changes noted
[2016-11-24] MEDS ORDERED: PROPOFOL IV EMULSION 10 MG/ML 20 ML VIAL IV ONE (07:40)
[2016-11-24] MEDS ORDERED: ONDANSETRON INJ 2 MG/ML 2 ML VIAL ONE (07:40)
[2016-11-24] MEDS ORDERED: DEXAMETHASONE SOD INJ 4 MG/ML VIAL ONE (07:40)
[2016-11-24] MEDS ORDERED: KETOROLAC TROMETHAMINE 30 MG/ML VIAL ONE (07:40)
[2016-11-24] MEDS ORDERED: LIDOCAINE HCL 2% 2 ML VIAL (20MG/ML) ONE (07:40)
[2016-11-24] MEDS ORDERED: ATROPINE SULFATE 0.1 MG/ML 5ML SYR IV PRN (08:00)
[2016-11-24] MEDS ORDERED: HYDROmorphone INJ 1 MG/ML SYR IV PRN (08:00)
[2016-11-24] MEDS ORDERED: ONDANSETRON INJ 2 MG/ML 2 ML VIAL IV PRN (08:00)
[2016-11-24] MEDS ORDERED: EpHEDrine SULFATE INJ 50 MG/ML AMP IV PRN (08:00)
[2016-11-24] MEDS ORDERED: FENTANYL CITRATE INJ 50 MCG/1 ML 2 ML VIAL IV PRN (08:00)
--- NOTE | 2016-11-24 08:22 | [facility] Operative Report ---
Operative Report Operative Date Nov 24, 2016. Pre-Operative Diagnosis Nephrolithiasis Post-Operative Diagnosis Nephrolithiasis Procedure(s) Performed Cystoscopy, Right Ureteroscopy, Laser Lithotripsy; Stone Basket Extraction; Retrograde Pyelogram; Stent Surgeon [employer] Teacher Surgeon(s) None Estimated Blood Loss 0CC Findings Obstructing UVJ stone with mild edema Fluids See Anes Report Specimens A: Distal Ureter Stone For Analysis Drains 6x26 Double J Stent On Right Anesthesia GET Complication(s) None Disposition Recovery Room / PACU Indications Obstructing stone failed expulsion therapy. Patient discussed risks and benefits and decided to proceed. Description of Procedure Patient was consented and brought back to the operating room. Patient was placed under anesthesia and into the dorsal lithotomy position. A time out was completed. A 30degree Cystoscope was placed into the bladder and the entire bladder was examined. The UO's were identified. The Right was cannulized with a catheter and a wire was then placed. The scope was removed and the short rigid scope placed. The UO was entered and the stone encountered. A laser fiber was selected and the stone was pulverized to dust and small fragments. With the stone treated, a three prong grasper was used to remove 2 fragments. The scope was taken to the proximal ureter and the ureter was examined. No masses or lesions or residual stones. At this point the scope was removed and a retrograde pyelogram was completed. With the wire in place, a 6 x 26 Double J stent was placed. It was confirmed with fluoroscopy. With the stent in place, the bladder was emptied. The scope was removed. The stent string was secure to the patient's lower abdomen.The patient was cleaned, aroused from anesthesia, and transferred to the pacu in stable condition having tolerated the procedure well with no complications. I was present and participated in all aspects of the procedure. The patient will be monitored in the PACU until ready for discharge. I attest to the content of the Intraoperative Record and any orders documented therein. Any exceptions are noted below.
[2016-11-24] MEDS ORDERED: PHEN-775 PO (08:23)
--- NOTE | 2016-11-24 08:26 | Discharge Instructions ---
Discharge Instructions Date of Service Nov 24, 2016. Admission Reason for Admission: Stones Discharge Discharge Diagnosis / Problem: Right Ureteral Stone Discharge Goals Goal(s): Decrease discomfort, Improve function Activity Recommendations Activity Limitations: resume your previous activity Lifting Limitations: none Exercise/Sports Limitations: none Shower/Bathe: no limitations Driving or Machine Use: no limitations Avoid driving if utilizing Narcotic pain pills. Stool softner as needed. . Instructions / Follow-Up Instructions / Follow-Up May have abd pain, burning, flank pain, and blood in urine. Call with any fevers or questions and concerns. Stent removal discussed with patient. Can remove stent on Wednesday morning. Call Wednesday if having any issues or problems. May have blood in urine after stent removal. Plan to follow up in 4 weeks. Current Hospital Diet Hospital Diet(s): Regular Diet Discharge Diet Recommended Diet: Regular Diet Procedures Procedures Performed: Cystoscopy, Right Ureteroscopy, Laser Lithotripsy; Stone Basket Extraction; Retrograde Pyelogram; Stent Pending Studies Studies pending at discharge: no Medical Emergencies . Who to Call and When: Medical Emergencies: If at any time you feel your situation is an emergency, please call 911 immediately. . Non-Emergent Contact Non-Emergency issues call your: Primary Care Provider Call Non-Emergent contact if: you have a fever, temperature is above 100.5, your pain is not controlled, your pain is worsening, you have any medication questions . . "Provider Documentation" section prepared by Renato Vernon,. . VTE Core Measure Inpt VTE Proph given/why not?: Placido Perez, [facility]
[2016-11-24] MEDS ORDERED: SCOPOLAMINE 1.5 MG TDSY TD SCH (08:30)
--- NOTE | 2016-11-24 08:50 | Anesthesiology Progress Note ---
Anesthesia Post Op Note Date & Time Nov 24, 2016 at 08:50 Vital Signs Pain Intensity: 2 Vital Signs Past 12 Hours Date Time Temp Pulse Resp B/P (MAP) Pulse Ox O2 Delivery O2 Flow Rate FiO2 11/24/16 08:40 81 13 106/63 96 Room Air 11/24/16 08:30 75 18 107/70 100 Oxymask 10 11/24/16 08:20 93 13 113/68 95 Oxymask 11/24/16 08:11 36.0 66 16 101/52 98 Oxymask 10 11/24/16 05:58 37.0 91 16 125/70 (88) 96 Room Air Notes Mental Status: alert / awake / arousable, participated in evaluation Pt Amnestic to Procedure: Yes Nausea / Vomiting: adequately controlled Pain: adequately controlled Airway Patency, RR, SpO2: stable & adequate BP & HR: stable & adequate Hydration State: stable & adequate Anesthetic Complications: no major complications apparent
[2016-11-24 08:55] VITALS: BP 107/59; PULSE 74; TEMP 37.1; O2SAT 98
[2016-11-24 09:25] VITALS: BP 114/73; PULSE 83; O2SAT 96
[2016-11-24 09:55] VITALS: BP 106/65; PULSE 83; TEMP 36.6; O2SAT 96
--- NOTE | 2016-11-24 10:49 | DIAGNOSTIC IMAGING REPORT ---
RETROGRADE INCLUDES KUB HISTORY: Right ureteral stent placement FLUOROSCOPY TIME: 21 seconds FINDINGS: 6 fluoroscopic spot images were submitted for review. Initial images demonstrate a guidewire and catheter placed in the right ureter and a retrograde fashion followed by injection of contrast. Mildly dilated right renal collecting system. This is followed by placement of a right ureteral stent. The proximal portion of the stent is looped near the ureteropelvic junction. The distal stent appears to be in good position. IMPRESSION: Fluoroscopy provided for placement of a right ureteral stent. The proximal portion of the stent is looped near the ureteropelvic junction. The distal stent appears to be in good position.. Electronically signed by: Onofre Manrique M.D. 11/24/2016 10:48 AM Dictated Date/Time: 11/24/2016 10:47 AM
[2016-11-24] MEDS ORDERED: CHECK SCOPOLAMINE PATCH PLACEMENT SCH (16:00)
== END 2016-11-24 10:00 | disposition home or self-care (01) ==
LOC: C.ACU 05:28
PROVIDERS: ATTEND Urology
DX: N20.2 Calculus of kidney with calculus of ureter (principal); G47.30 Sleep apnea, unspecified; E78.00 Pure hypercholesterolemia, unspecified; E66.9 Obesity, unspecified

== ENCOUNTER → 2017-01-26 | Outpatient (CLI) | payer BC ==
[~2017-01-26] MED LIST changes: +ONDA4TAB46 PO; +SULF800T23 PO; +TAMS0.4C38 PO
--- NOTE | 2017-01-26 14:08 | DIAGNOSTIC IMAGING REPORT ---
KUB CLINICAL HISTORY: N20.0 [id number] COMPARISON STUDY: 11/19/2016 FINDINGS: There is no pathologic bowel dilatation. There is a punctate mid pole left renal calcification suspicious for a calculus. There are faint granular calcifications project over the lower pole the right kidney consistent with calculi. The previously identified 5 mm distal right ureteral calculus is no longer visualized. IMPRESSION: 1. No evidence of pathologic bowel dilatation 2. Bilateral nephrolithiasis 3. The previously identified distal right ureteral calculus is no longer visualized Electronically signed by: Tae Yang M.D. 01/26/2017 2:07 PM Dictated Date/Time: 01/26/2017 2:05 PM
== END | disposition home or self-care (01) ==
LOC: C.RAD 13:27
PROVIDERS: ATTEND Urology
DX: N20.0 Calculus of kidney (principal)

== ENCOUNTER → 2017-07-26 | Outpatient (CLI) | payer OTHER ==
--- NOTE | 2017-07-26 12:32 | DIAGNOSTIC IMAGING REPORT ---
EXAMINATION: RENAL ULTRASOUND CLINICAL HISTORY: N20.0 [id number] COMPARISON STUDY: 11/16/2016 FINDINGS: The right kidney measures 10 cm. The left kidney measures 10.7 cm. There is no evidence of hydronephrosis. There are no renal masses. No renal calculi aren't discernible ultrasonographically. No bladder abnormalities are visualized. Bilateral ureteral jets were visualized. IMPRESSION : Normal renal ultrasound. Electronically signed by: Tae Yang M.D. 07/26/2017 12:30 PM Dictated Date/Time: 07/26/2017 12:29 PM
== END | disposition home or self-care (01) ==
LOC: C.ULTR 12:07
PROVIDERS: ATTEND Urology
DX: N20.0 Calculus of kidney (principal)